=== PATIENT | female | born 1950 | race Caucasian/White ===

== ENCOUNTER 2018-11-23 07:08 | Day surgery (SDC) ==
[2018-11-23 07:42] VITALS: TEMP 97.5
[2018-11-23] MEDS ORDERED: LIDOCAINE 1% 20 ML MDV ID STA (08:41)
[2018-11-23] MEDS ORDERED: VERSED ONE (09:00)
[2018-11-23] MEDS ORDERED: DIPRIVAN 20 ML VIAL IVP ONE (09:00)
--- NOTE | 2018-11-23 14:46 | OP ---
INDICATIONS FOR PROCEDURE: 67 year old female presents for colonoscopy exam. She has a past history of polyps with unknown histology. She has a family history of colon polyps involving her sister. MEDICATIONS: SEE ANESTHESIA NOTES. PROCEDURE: COLONOSCOPY. REPORT: The risks, benefits, alternatives and limitations were discussed in detail with the patient. Informed consent was obtained. After adequate sedation was achieved, a digital rectal exam revealed good tone, no masses. The colonoscope was introduced into the rectum and advanced under direct visual guidance to the cecum. The cecum was identified by the appendiceal orifice and IC valve. I then slowly withdrew the scope in circumferential manner and examined the mucosa quite carefully. I looked on the proximal and distal sides of the folds and flexures as best as possible. I am able to retroflex the scope in the right colon and the left colon to increase visualization. The colonic mucosa was unremarkable it's entire length including on retroflex view of the anal canal. I did see scattered diverticuli in the sigmoid colon. The prep was good and the withdraw time was 9 minutes and 47 seconds. The patient tolerated the procedure well with stable vital signs and pulse oximetry throughout. IMPRESSION: 1. Diverticulosis in the sigmoid RECOMMENDATIONS: 1. High fiber diet 2. Office visit as needed 3. Colonoscopy examination again in 5 years if clinically well or sooner if signs or symptoms would indicate otherwise. CC: Dr. Mckenna. LIG[place]
[2018-11-24 08:07] VITALS: BP 143/68
== END 2018-11-23 10:10 | disposition home or self-care (01) ==
LOC: SURG 07:08
PROVIDERS: ATTEND Internal Medicine Gastroenterology
DX: Z83.71 Family history of colonic polyps (principal); Z86.010 Personal history of colon polyps; K57.90 Diverticulosis of intestine, part unspecified, without perforation or abscess without bleeding